=== PATIENT | female | born 1945 | race Caucasian/White ===

== ENCOUNTER 2018-06-28 11:10 | Emergency (ER) | payer MEDICARE, BC ==
[2018-06-28] MEDS ORDERED: ONDANSETRON 4 MG TAB.RAPDIS PO ONE (12:19)
--- NOTE | 2018-06-28 12:20 | ER Document Report ---
ED Medical Screen (RME) - General Chief Complaint: Nausea Stated Complaint: POSSIBLE TICK BITE Time Seen by Provider: 06/28/18 12:10 Notes: 73 years old female presents today with 2 weeks history of general malaise and general fatigue weakness as well as chills on and off. She states she was bitten by a tick which was removed from the right vulvovaginal region. Few days ago. TRAVEL OUTSIDE OF THE [place] IN LAST 30 DAYS: No - Related Data Allergies/Adverse Reactions: ibuprofen Adverse Reaction (Verified 06/28/18 11:25) skin burning zolpidem tartrate [From Ambien] Adverse Reaction (Verified 06/28/18 11:25) skin burning Past Medical History - Social History Chew tobacco use (# tins/day): No Frequency of alcohol use: None Drug Abuse: None Pulmonary Medical History: Denies: Hx Tuberculosis Neurological Medical History: Reports: Hx Migraine Renal/ Medical History: Denies: Hx Peritoneal Dialysis - Immunizations Hx Diphtheria, Pertussis, Tetanus Vaccination: Yes Physical Exam - Vital signs Vitals: Temp Pulse Resp BP Pulse Ox 97.5 F 91 20 135/75 H 97 06/28/18 12:00 06/28/18 12:00 06/28/18 12:00 06/28/18 12:00 06/28/18 12:00 Course - Vital Signs Vital signs: Temp Pulse Resp BP Pulse Ox 97.5 F 91 20 135/75 H 97 06/28/18 12:00 06/28/18 12:00 06/28/18 12:00 06/28/18 12:00 06/28/18 12:00 Doctor's Discharge - Discharge Referrals: LUCINA SOLOMON MD [Primary Care Provider] - Follow up as needed
[2018-06-28 13:35] LABS: APPEARANCE,URINE CLEAR; BILIRUBIN,URINE NEGATIVE (NEGATIVE); COLOR,URINE YELLOW; GLUCOSE, URINE NEGATIVE (NEGATIVE); KETONES,URINE NEGATIVE (NEGATIVE); PROTEIN,URINE NEGATIVE (NEGATIVE); URINE SPECIFIC GRAVITY 1.022; UROBILINOGEN,URINE NEGATIVE mg/dL (<2.0)
[2018-06-28 13:36] LABS: LEUKOCYTE ESTERASE,URINE LARGE (NEGATIVE); NITRITE,URINE NEGATIVE (NEGATIVE)
[2018-06-28 13:41] LABS: ABSOLUTE BASOPHILS # (AUTO) 0.1 10^3/uL (0.0-0.2); ABSOLUTE LYMPHOCYTES (AUTO) 1.4 10^3/uL (0.5-4.7); ABSOLUTE MONOCYTES (AUTO) 0.7 10^3/uL (0.1-1.4); ABSOLUTE NEUT (AUTO) 4.5 10^3/uL (1.7-8.2); BASOPHILS % (AUTO) 1.1 % (0-2); EOSINOPHILS % (AUTO) 0.7 % (0-6); HEMOGLOBIN 14.8 g/dL (12.0-15.5); LYMPHOCYTES % (AUTO) 21.2 % (13-45); MEAN CORPUSCULAR HEMOGLOBIN 30.5 pg (27.0-33.4); MEAN CORPUSCULAR HGB CONC 34.3 g/dL (32.0-36.0); MEAN CORPUSCULAR VOLUME 89 fl (80-97); MONOCYTES % (AUTO) 9.9 % (3-13); PLATELET COUNT 214 10^3/uL (150-450); RED BLOOD COUNT 4.84 10^6/uL (3.72-5.28); RED CELL DISTRIBUTION WIDTH 15.1 % (11.5-14.0); SEGMENTED NEUTROPHILS % (AUTO) 67.1 % (42-78); TOTAL CELLS COUNTED % (AUTO) 100 %; WHITE BLOOD COUNT 6.7 10^3/uL (4.0-10.5)
--- NOTE | 2018-06-28 13:48 | RADIOLOGY REPORT (SQ) ---
EXAM DESCRIPTION: ABDOMEN 2 VIEWS COMPLETED DATE/TIME: 06/28/2018 1:37 pm REASON FOR STUDY: Abdominal pain COMPARISON: None. NUMBER OF VIEWS: Two views. TECHNIQUE: Supine and erect/decubitus radiographic images of the abdomen acquired. LIMITATIONS: None. FINDINGS: FREE AIR: None. No abnormal gas collections. LUNG BASES: Clear. BOWEL GAS PATTERN: Nonobstructive pattern. No dilated loops or air fluid levels. CALCIFICATIONS: No suspicious calcifications. SOFT TISSUES: No gross mass or suggestion of organomegaly. HARDWARE: None in the abdomen. BONES: No acute fracture. No worrisome bone lesions. OTHER: No other significant finding. IMPRESSION: NO RADIOGRAPHIC EVIDENCE FOR ACUTE ABDOMINAL DISEASE. TECHNICAL DOCUMENTATION: JOB ID: [id number] [employer]- All Rights Reserved Reading location - IP/workstation name: [email or web address]
[2018-06-28 14:08] LABS: ALANINE AMINOTRANSFERASE 27 U/L (9-52); ALBUMIN 4.6 g/dL (3.5-5.0); ALKALINE PHOSPHATASE 119 U/L (38-126); ANION GAP 10 (5-19); ASPARTATE AMINO TRANSFERASE 24 U/L (14-36); BILIRUBIN,DIRECT 0.5 mg/dL (0.0-0.4); BILIRUBIN,TOTAL 0.9 mg/dL (0.2-1.3); BLOOD UREA NITROGEN 25 mg/dL (7-20); CARBON DIOXIDE 29 mmol/L (22-30); CHLORIDE 102 mmol/L (98-107); GLUCOSE 99 mg/dL (75-110); POTASSIUM 3.4 mmol/L (3.6-5.0); SODIUM 140.8 mmol/L (137-145); TOTAL PROTEIN 8.1 g/dL (6.3-8.2)
[2018-06-28] MEDS ORDERED: METOCLOPRAMIDE HCL 10 MG TABLET PO ONE (14:30)
[2018-06-28] MEDS ORDERED: ONDANSETRON ODT 4 MG TAB (6 TAB/ER DISP) PO PRN (16:05)
--- NOTE | 2018-06-28 16:06 | ER Document Report ---
ED General - General Chief Complaint: Nausea Stated Complaint: POSSIBLE TICK BITE Time Seen by Provider: 06/28/18 12:10 TRAVEL OUTSIDE OF THE [place] IN LAST 30 DAYS: No - HPI Patient complains to provider of: Nausea malaise Notes: Patient coming in for complaint of nausea and malaise. Patient states ongoing for approximately the last 72 hours. Patient states that for approximately 1 week she thought she had a molar in her groin her pulled off a tick. Patient was unable to bring to take in for further evaluation. Patient denies any fevers chills diarrhea patient states having nausea vomiting. Patient otherwise looks to be comfortable laying on her left lateral recumbent side. - Related Data Allergies/Adverse Reactions: ibuprofen Adverse Reaction (Verified 06/28/18 14:09) skin burning zolpidem tartrate [From Ambien] Adverse Reaction (Verified 06/28/18 14:09) skin burning Past Medical History - Social History Smoking Status: Never Smoker Chew tobacco use (# tins/day): No Frequency of alcohol use: None Drug Abuse: None Family History: Reviewed & Not Pertinent Patient has suicidal ideation: No Patient has homicidal ideation: No Pulmonary Medical History: Denies: Hx Tuberculosis Neurological Medical History: Reports: Hx Migraine Renal/ Medical History: Denies: Hx Peritoneal Dialysis - Immunizations Hx Diphtheria, Pertussis, Tetanus Vaccination: Yes Hx Pneumococcal Vaccination: 10/12/09 Review of Systems - Review of Systems Constitutional: No symptoms reported EENT: No symptoms reported Cardiovascular: No symptoms reported Respiratory: No symptoms reported Gastrointestinal: Nausea, Vomiting Genitourinary: No symptoms reported Female Genitourinary: No symptoms reported Musculoskeletal: No symptoms reported Skin: No symptoms reported Hematologic/Lymphatic: No symptoms reported Neurological/Psychological: No symptoms reported -: Yes All other systems reviewed and negative Physical Exam - Vital signs Vitals: Temp Pulse Resp BP Pulse Ox 97.5 F 91 20 135/75 H 97 06/28/18 12:00 06/28/18 12:00 06/28/18 12:00 06/28/18 12:00 06/28/18 12:00 Interpretation: Normal - General General appearance: Appears well, Alert - HEENT Head: Normocephalic, Atraumatic Eyes: Normal Pupils: PERRL - Respiratory Respiratory status: No respiratory distress Chest status: Nontender Breath sounds: Normal Chest palpation: Normal - Cardiovascular Rhythm: Regular Heart sounds: Normal auscultation Murmur: No - Abdominal Inspection: Normal Distension: No distension Bowel sounds: Normal Tenderness: Nontender Organomegaly: No organomegaly - Back Back: Normal, Nontender - Extremities General upper extremity: Normal inspection, Nontender, Normal color, Normal ROM , Normal temperature General lower extremity: Normal inspection, Nontender, Normal color, Normal ROM , Normal temperature, Normal weight bearing. No: Nacho's sign - Neurological Neuro grossly intact: Yes Cognition: Normal Orientation: AAOx4 Blu Coma Scale Eye Opening: Spontaneous Widener Coma Scale Verbal: Oriented Widener Coma Scale Motor: Obeys Commands Widener Coma Scale Total: 15 Speech: Normal Motor strength normal: LUE, RUE, LLE, RLE Sensory: Normal - Psychological Associated symptoms: Normal affect, Normal mood - Skin Skin Temperature: Warm Skin Moisture: Dry Skin Color: Normal Course - Re-evaluation Re-evalutation: 06/28/18 21:12 Patient able tolerate p.o. Patient will be discharged home follow-up primary care physician. - Vital Signs Vital signs: Temp Pulse Resp BP Pulse Ox 97.4 F 92 15 130/78 H 100 06/28/18 16:42 06/28/18 16:42 06/28/18 16:42 06/28/18 16:42 06/28/18 16:42 - Laboratory Result Diagrams: 06/28/18 13:05 06/28/18 13:05 Laboratory results interpreted by me: 06/28/18 06/28/18 06/28/18 13:05 13:05 13:05 RDW 15.1 H Potassium 3.4 L BUN 25 H Creatinine 1.38 H Est GFR ( Amer) 46 L Est GFR (Non-Af Amer) 38 L Direct Bilirubin 0.5 H Urine Blood SMALL H Ur Leukocyte Esterase LARGE H Discharge - Discharge Clinical Impression: Dehydration Nausea & vomiting Qualifiers: Vomiting type: unspecified Vomiting Intractability: unspecified Qualified Code( s): R11.2 - Nausea with vomiting, unspecified Condition: Good Disposition: HOME, SELF-CARE Instructions: Vomiting ([facility]) Additional Instructions: Follow-up with your primary care physician. Take nausea medication as prescribed. Return to ER if symptoms worsen. Prescriptions: Ondansetron [Zofran Odt] 4 mg PO Q6 PRN #30 tab.rapdis PRN Reason: For Nausea/Vomiting Referrals: LUCINA SOLOMON MD [Primary Care Provider] - Follow up as needed
[2018-06-28 16:43] VITALS: BP 130/78
== END 2018-06-28 16:43 | disposition home or self-care (01) ==
LOC: ER 11:10
DX: E86.0 Dehydration (principal); R11.2 Nausea with vomiting, unspecified
CPT/HCPCS: 99284; 36415; 87086; 85025; 80053; 81001; 74019; A9270 ×2; S0119